=== PATIENT | female | born 1975 ===

== ENCOUNTER 2017-08-03 10:16 | Day surgery (SDC) | payer MEDICARE ==
[2017-07-30 13:17] VITALS: BMI 37.1
[2017-08-03] MEDS ORDERED: ceFAZolin 1 gm in NS 2 GM/200 ML BAG IVPB ONE (10:27)
[2017-08-03] MEDS ORDERED: Lidocaine/Epinephrine 1% 1:100000 10 ML IJ ONE (10:27)
[2017-08-03] MEDS ORDERED: Propofol 10 mg/ml Inj (20 ML) ONE (11:48)
[2017-08-03] MEDS ORDERED: Midazolam 2 MG/2 ML VIAL ONE (11:48)
[2017-08-03] MEDS ORDERED: Rocuronium 10 mg/ml (5 ml) ONE (11:54)
--- NOTE | 2017-08-03 12:00 | CP.PCM.PN ---
Subjective - Date & Time of Evaluation Date of Evaluation: 08/03/17 Time of Evaluation: 12:00 - Subjective Subjective: [employer] patient report reviewed, last tramadol 10/2016. Patient counseled on the risks of addiction, physical or psychological dependence, and overdose associated with opioid drugs and the danger of taking opioid drugs with alcohol and other central nervous system depressants, and cautioned patient on storage and disposal. Objective - Vital Signs/Intake and Output Vital Signs (last 24 hours): Temp Pulse Resp BP Pulse Ox 97.8 F 85 20 130/83 98 08/03/17 10:32 08/03/17 10:32 08/03/17 10:32 08/03/17 10:32 08/03/17 10:32
[2017-08-03] MEDS: EPINEPHrine 1:1000 Nasal Sol(30mL) ONE ×2 (12:05→13:10)
[2017-08-03] MEDS ORDERED: Neostigmine Methylsulfate 3mg/3ml Syringe IV ONE (13:06)
[2017-08-03] MEDS ORDERED: Bupivacaine HCl 0.25% PF (30 ml) Inj ONE (13:15)
[2017-08-03] MEDS ORDERED: Lactated Ringer's 1,000 ML IV ONE (13:25)
--- NOTE | 2017-08-03 13:26 | PCM.SURG1 ---
Surgeon's Initial Post Op Note - Surgeon's Notes Surgeon: Kesha Willingham MD Reiki Practitioner: Nikki Pa PA-C, Tracy Glasgow PA-C Type of Anesthesia: General Endo Anesthesia Administered By: Dr. Valderrama Pre-Operative Diagnosis: Left knee medial meniscus tear and ACL sprain Operative Findings: see full note Post-Operative Diagnosis: Left knee medial meniscus tear, tricompartmental OA Operation Performed: Left knee arthroscopy with medial meniscectomy Specimen/Specimens Removed: none Estimated Blood Loss: EBL {In ML}: 5 Blood Products Given: N/A Drains Used: No Drains Post-Op Condition: Fair Date of Surgery/Procedure: 08/03/17 Time of Surgery/Procedure: 13:
[2017-08-03] MEDS ORDERED: Oxycodone/Acetaminophen 5/325 mg Tab PO PRN (13:27)
[2017-08-03] MEDS ORDERED: HYDROmorphone 0.5 mg/0.5 ml ISec IVP PRN (13:27)
[2017-08-03] MEDS ORDERED: Midazolam 2 MG/2 ML VIAL IVP PRN (13:27)
[2017-08-03 14:57] VITALS: TEMP 97.8
[2017-08-03 15:13] VITALS: BP 103/59; PULSE 78; RESP 15; O2SAT 100
--- NOTE | 2017-08-04 00:05 | OP ---
PROCEDURE DATE: 08/05/2017 SURGEON: Serjio Willingham MD PREOPERATIVE DIAGNOSES: Left knee medial meniscal tear, left knee anterior cruciate ligament sprain, and degenerative joint disease. POSTOPERATIVE DIAGNOSES: Left knee medial meniscal tear, anterior cruciate ligament sprain, and tricompartmental degenerative joint disease. PROCEDURE: Left knee arthroscopy with medial meniscectomy and chondroplasty of the lateral tibial plateau. COMPLICATIONS: None. ESTIMATED BLOOD LOSS: 5 mL. INDICATIONS FOR PROCEDURE: This is a 42-year-old female who presented with longstanding left knee pain. Clinical examination is consistent with some medial and lateral joint line tenderness. Some mild laxity with the Laney with a firm endpoint. No varus/valgus instability. Radiographic and MRI examination was consistent with some degenerative joint disease of the left knee with grade 1 sprain at the ACL as well as medial meniscal tear. After a period of failed nonsurgical management, recommendations were for a left knee arthroplasty. The risks, benefits, and alternatives of the procedure were discussed with the patient including the possibility of continued pain secondary to degenerative joint disease as well as acceleration of a degenerative joint disease and she understood these risks and informed consent was obtained. OPERATIVE PROCEDURE: After the surgical site was finally verified in the preoperative holding area, the patient was taken to the operating room and placed supine on the operating room table. After administration of general anesthesia, the patient received 2 gm of Ancef IV. An examination under anesthesia was performed. The patient was noted to have a negative Laney with a firm endpoint and a negative pivot shift test. The patient was also noted to be stable with vagus and varus stress. At this point, a tourniquet was placed at the space about the left thigh. Care was taken to make sure all bony prominences and nerves were well padded and protected, a lateral post was placed along the proximal aspect of the left thigh and the left lower extremity was prepped and draped in the usual sterile fashion. The bony landmarks were identified about the left knee and our portal sites were injected with a total of 10 mL of 1% lidocaine with epinephrine. An anterolateral arthroscopy portal was established and arthroscope was inserted into the patellofemoral joint. The patellofemoral articulation did have some grade 2 to grade 3 changes. There was a grade 3 lesion on the trochlea. Through an anterior medial portal, this area was probed. No loose flaps were noted about the periphery of the lesion. Similarly, the patella was noted to have some grade 2 to grade 3 chondromalacia particularly along the medial patellar facet and no loose bodies were appreciated. The medial lateral gutters as well as suprapatellar recess were noted to be free of any loose bodies or pathologic plica. Next to the anterior medial border, the medial meniscus was probed and it looked like there was evidence of prior meniscectomy as the posterior horn was truncated. There was a radial-type tear at the junction of the posterior horn of the mid sections of the meniscus. Using a combination of Basket forceps and a full radius shaver, the meniscal tear was resected back to a small but stable rim. The meniscus was again probed. It was noted to be stable and no evidence of any further tearing. The condylar surfaces of the medial femoral condyle were noted to have a grade 2 to grade 3 almost full-thickness area of cartilage loss along the medial margin of the weightbearing surface. The medial tibial plateau was thus also noted to have some grade 1 to grade 2 changes. Next, the intercondylar notch was evaluated. ACL was well visualized and probed and noted to be stable. There was some interstitial tearing, but femoral and tibial insertions appeared to be intact and stable. Anterior drill was also performed and again the ACL was noted to be stable. The PCL was also well visualized and appeared to be intact. Next, the lateral compartment was evaluated. Lateral meniscus was probed, it was noted to be intact. The patient was noted to have a grade 2 lesion of the cartilage on the lateral tibial plateau with an unstable flap of cartilage. Using basket forceps and full radius shaver, this flap of cartilage was debrided to a stable rim. The popliteus tendon was also visualized and appeared to be intact. At this point, the knee joint was irrigated through the arthroscopic cannula and all instruments were removed. All portal sites were closed using interrupted 3-0 Vicryl suture and Dermabond to the skin. A sterile dressing was applied. The patient was awakened from the procedure, and taken to recovery room in stable condition. Serjio Willingham MD
== END 2017-08-03 15:12 | disposition home or self-care (01) ==
LOC: C.SDS 10:16
PROVIDERS: ATTEND Orthopaedic Surgery
DX: M17.12 Unilateral primary osteoarthritis, left knee (principal); S83.242A Other tear of medial meniscus, current injury, left knee, initial encounter; S83.512A Sprain of anterior cruciate ligament of left knee, initial encounter
CPT/HCPCS: 29877; 82948; 97116; 97161; G8978; G8979; G8980; J0690; J1885; J2001; J2250; J2405; J2704; J2710; J2765; J3010; J7120

== ENCOUNTER 2017-12-07 08:07 | Day surgery (SDC) | payer MEDICARE ==
[2017-07-30 13:17] VITALS: BMI 37.1
[~2017-12-07 08:07] MED LIST: Lidocaine/Epinephrine 1% 1:100000 10 ML IJ ONE; ceFAZolin IV 1 gm in Dextrose 2 GM/100 ML BAG IVPB ONE
[2017-12-07] MEDS ORDERED: Propofol 10 mg/ml Inj (20 ML) ONE ×2 (09:28→09:30)
[2017-12-07] MEDS ORDERED: Midazolam 2 MG/2 ML VIAL ONE (09:28)
[2017-12-07] MEDS ORDERED: Neostigmine Methylsulfate 3mg/3ml Syringe IV ONE (10:53)
[2017-12-07] MEDS ORDERED: Oxycodone/Acetaminophen 5/325 mg Tab PO PRN (11:16)
--- NOTE | 2017-12-07 11:16 | PCM.SURG1 ---
Surgeon's Initial Post Op Note - Surgeon's Notes Surgeon: Kesha Willingham MD Lead Portfolio Manager: Nikki Pa PA-C Type of Anesthesia: General Endo Anesthesia Administered By: Dr. Mccollum Pre-Operative Diagnosis: Right knee medial meniscus tear, ACL tear Operative Findings: see full note Post-Operative Diagnosis: right knee medial meniscus tear, DJD Operation Performed: right knee arthroscopy with medial meniscectomy Specimen/Specimens Removed: none Estimated Blood Loss: EBL {In ML}: 5 Blood Products Given: N/A Drains Used: No Drains Post-Op Condition: Fair Date of Surgery/Procedure: 12/07/17 Time of Surgery/Procedure: 11:16
[2017-12-07] MEDS ORDERED: HYDROmorphone 0.5 mg/0.5 ml ISec IVP PRN (11:20)
[2017-12-07 12:53] VITALS: RESP 16; TEMP 97.6; O2SAT 100
[2017-12-07 13:26] VITALS: BP 107/57; PULSE 79
[2017-12-07] MEDS ORDERED: Bupivacaine 0.25% 20 ML INJ IJ ONE (13:33)
--- NOTE | 2017-12-07 19:20 | OP ---
Copied To: Serjio Willingham MD Attending MD: Serjio Willingham MD PROCEDURE DATE: 12/07/2017 PREOPERATIVE DIAGNOSES: Right knee anterior cruciate ligament sprain, degenerative joint disease, and medial meniscal tear. POSTOPERATIVE DIAGNOSES: Right knee anterior cruciate ligament sprain, degenerative joint disease, and medial meniscal tear. PROCEDURE: Right knee examination under anesthesia, right knee arthroscopy with medial meniscectomy. SURGEON: Serjio Willingham MD CREDIT COLLECTION ASSOCIATE: JONI Simon. Mr. Pa was present throughout the entire case. ANESTHESIA: General. COMPLICATIONS: None. ESTIMATED BLOOD LOSS: 5 mL INDICATION FOR PROCEDURE: This is a 42-year-old female who presented with long-standing right knee pain. Clinical examination was consistent with some joint line tenderness and peripatellar pain. The patient was noted to have 1 Laney with a firm endpoint and negative pivot shift. Radiographic and MRI examination was consistent with degenerative joint disease as well as tear of her ACL and tear of the posterior horn of her medial meniscus. After a period of failed nonsurgical management, recommendations are for right knee arthroscopy. The risks, benefits, and alternatives of the procedure were discussed with the patient including the possibility of persistent pain secondary to arthritis and need for further surgery including joint replacement and informed consent was obtained. OPERATIVE PROCEDURE: After surgical site was finally verified in the perioperative holding area, the patient was taken to the operating room, placed supine on the operating room table. After administration of general anesthesia, the patient received 2 g of Ancef IV. Examination under anesthesia was performed. The patient was noted to have a negative pivot shift and a 0 Laney. The patient was noted to be stable with varus and valgus stress. At this point, the tourniquet was placed about the right thigh. Care was taken to make sure all bony prominences and nerves were well padded and protected and the right lower extremity was prepped and draped in the usual sterile fashion. Previously anterolateral portal was re-incised and the arthroscope was inserted into the knee joint. 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 The patient was noted to have what appeared to be some fibrotic tissue and hypertrophic synovium and through an anteromedial portal, this was debrided. The medial and lateral gutters as well as suprapatellar recess was noted to be free of any loose bodies or pathologic plica. Next, the medial compartment was evaluated through the anteromedial portal. The medial meniscus was probed. The patient was noted to have a tear of the remnant of the posterior horn of her medial meniscus. Using a combination of basket forceps and a full radius shaver, a meniscectomy was performed, resecting the remnant back to small, but stable rim. Anterior horn was noted to have no obvious tears. At this point, the chondral surface of the medial femoral condyle was noted to have grade 3 chondromalacia on the entire weightbearing surface of the condyle. Some small flaps of cartilage were appreciated on the medial femoral condyle and this was debrided using a full radius shaver. The patient was noted to have grade 2 chondromalacia of the medial tibial plateau. Next, the intercondylar notch was evaluated. ACL was noted to have some intrasubstance tearing, but was probed and appeared to be stable. Intraoperative Laney was also demonstrated during the surgery and the patient was noted to have 0 to 1 Laney with firm end point. At this point, decision was made not to proceed with the ACL reconstruction. The PCL was also visualized and appeared to be intact. Next, the lateral compartment was evaluated. Lateral meniscus was probed and was noted to be intact. The chondral surfaces of the lateral compartment noted to have some grade 1 changes. At this point, the knee joint was irrigated through the arthroscopic cannula. All instruments were removed. Our portal sites were closed using interrupted 3-0 Vicryl and Dermabond for the skin. Sterile dressing was applied. The patient was awakened from the procedure and taken to recovery room in stable condition. Serjio Willingham MD
== END 2017-12-07 13:23 | disposition home or self-care (01) ==
LOC: C.SDS 08:07
PROVIDERS: ATTEND Orthopaedic Surgery
DX: S83.511A Sprain of anterior cruciate ligament of right knee, initial encounter (principal); S83.241A Other tear of medial meniscus, current injury, right knee, initial encounter; M22.41 Chondromalacia patellae, right knee; M67.261 Synovial hypertrophy, not elsewhere classified, right lower leg; M17.11 Unilateral primary osteoarthritis, right knee; E11.9 Type 2 diabetes mellitus without complications; Z79.84 Long term (current) use of oral hypoglycemic drugs
CPT/HCPCS: 29881; 82948; J0171; J0690; J1170; J2250; J2704; J2710; J3010